=== PATIENT | female | born 1980 | race Caucasian/White ===

== ENCOUNTER 2018-09-25 06:10 | Day surgery (SDC) | payer OTHER ==
[2018-09-25 06:27] LABS: Specific Gravity 1.025 (1.005-1.030)
[2018-09-25] MEDS ORDERED: CEFAZOLIN 1GM (PREMIX IV) 1 GM/50 ML BAG ONE (06:54)
[2018-09-25] MEDS ORDERED: Ringers Lactate 1,000 ML IV ONE (06:54)
[2018-09-25] MEDS ORDERED: SILVER NITRATE 1 APPL TOP ONE (07:40)
[2018-09-25] MEDS ORDERED: LIDOCAINE 1% W/EPI 1:100,000 MDV 50 ML VIAL ONE (07:40)
[2018-09-25] MEDS ORDERED: FENTANYL CITR 100 MCG/2 ML ONE (07:59)
[2018-09-25] MEDS ORDERED: PROPOFOL 200 MG/20 ML VIAL IV ONE (07:59)
[2018-09-25] MEDS ORDERED: MIDAZOLAM HCL 2 MG/2 ML INJ ONE (08:00)
[2018-09-25] MEDS ORDERED: LIDOCAINE 2% MPF 5 ML VIAL ONE (08:00)
[2018-09-25] MEDS ORDERED: ONDANSETRON 4 MG/2 ML VIAL ONE (08:17)
[2018-09-25] MEDS ORDERED: KETOROLAC 30 MG/ML INJ ONE (08:39)
[2018-09-25] MEDS ORDERED: HYDROMORPHONE HCL 1 MG/ML INJ ONE (09:14)
[2018-09-25] MEDS ORDERED: HYDROCODONE/APAP 5/325 MG TAB ONE (10:00)
--- NOTE | 2018-09-25 13:28 | OP ---
Date of Procedure: 09/25/2018 Surgeon: Deb Ulrich MD Preoperative Diagnosis: Menorrhagia (AUB-O). Postoperative Diagnosis: Menorrhagia (AUB-O). Procedures Performed: Hysteroscopy, endometrial ablation with HTA. Anesthesia: General. Specimens: None. Complications: No complications. Drains: None. Condition: Stable. Indications: The patient is a 38-year-old with heavy menstrual bleeding. She has been evaluated wit h a transvaginal ultrasound. Endometrial sampling was performed. No evidence of any hyperplasia or malignancy or atypia. She has a left 2 cm physiological cyst, but ultrasound completely unremarkable for any uterine pathology. So, we discussed nonhormonal options mostly because she has elevated milvia er enzymes. Mirena versus ablation was discussed, even though there was small amount of progesterone in this. The patient decided to proceed with an ablation. Discussed about 90% efficacy 25% recurre nce in 35 years. The patient has had a tubal ligation after her 2 children. 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 She was given Provera 100 mg daily fo r 2 weeks to thin the lining to potentially improve the ablation effect. Description Of Procedure: After patient was consented, she was brought to the OR. A gram of Ancef w as given. Placed in a supine fashion. General anesthesia was given with LMA. The patient was place d in a dorsal lithotomy position using Christopher stirrups. Pelvic exam performed. Uterus anteflexed. N o adnexal masses were palpable. Vulva, vagina, and perineum were prepped and draped in a sterile fas hion. There was no Lanza inserted. Speculum was used to expose the cervix. Anterior lip grasped wi 2 Allis clamps. After the HTA sheath was primed, a direct hysteroscopy was performed through the cervical canal to enter into the uterine cavity. The cavity appeared to be unremarkable. Slightly t hickened posterior endometrium. No distortions. After the tip of the scope was placed in the center of the cavity, the anterior Allis was hooked onto the HTA sheath. Posterior fornix was packed with 2 Ray-Tecs. Cavity integrity test was done and passed without any significant leak. Proceeded to e ablation, the heating cycle with 10 minutes ablation cycle and 1.5 minutes cooling cycle were all c onducted without any interruption. There was an excellent ablation effect in the entire endometrial cavity. The cavity was rinsed out with diagnostic hysteroscopy at the end. Then all the instruments were removed. The Ray-Tecs were removed. Instrument, needle, and sponge counts were done and were correct at the end of the case. The patient tolerated the procedure well. She will follow up with isha torres in 3 weeks. BOBY/ALICIA Voice ID: [id number] Report ID: [id number]
== END 2018-09-25 10:53 | disposition home or self-care (01) ==
LOC: OR 06:10
PROVIDERS: ATTEND Obstetrics & Gynecology
PROC: 0U5B8ZZ Destruction of Endometrium, Via Natural or Artificial Opening Endoscopic (ICD-10-PCS; principal; 2018-09-25 08:00)
DX: N92.0 Excessive and frequent menstruation with regular cycle (principal); N93.9 Abnormal uterine and vaginal bleeding, unspecified; I49.9 Cardiac arrhythmia, unspecified; Z80.49 Family history of malignant neoplasm of other genital organs
CPT/HCPCS: 81025; J0690; J1170; J2250; J2405; J2704; J3010